=== PATIENT | male | born 1970 | race Caucasian/White ===

== ENCOUNTER 2021-11-10 12:45 | Emergency (ER) | payer MEDICAID ==
[~2021-11-10] VITALS: Ht 167.6 cm; Wt 77.3 kg
[2021-11-10] MEDS ORDERED: SERT-162 PO (13:15)
[2021-11-10] MEDS ORDERED: QUET300T2 PO (13:15)
[2021-11-10] MEDS ORDERED: TRAZ-257 PO (13:15)
[2021-11-10 15:17] LABS: AMPHET/METH SCREEN,URINE POSITIVE (NEGATIVE); BARBITURATE SCREEN, URINE NEGATIVE (NEGATIVE); BENZODIAZEPINES SCREEN,URINE NEGATIVE (NEGATIVE); CANNABINOID SCREEN,URINE POSITIVE (NEGATIVE); COCAINE SCREEN,URINE NEGATIVE (NEGATIVE); METHADONE SCREEN, URINE NEGATIVE (NEGATIVE); OPIATE SCREEN,URINE NEGATIVE (NEGATIVE); PHENCYCLIDINE SCREEN,URINE NEGATIVE (NEGATIVE)
[2021-11-10 18:04] VITALS: BP 124/78
== END 2021-11-10 18:23 | disposition home or self-care (01) ==
LOC: EMS 12:45
DX: F15.951 Other stimulant use, unspecified with stimulant-induced psychotic disorder with hallucinations (principal); F12.90 Cannabis use, unspecified, uncomplicated; F17.210 Nicotine dependence, cigarettes, uncomplicated; Z79.899 Other long term (current) drug therapy
CPT/HCPCS: 99285